=== PATIENT | male | born 1965 | race African-American/Black ===

== ENCOUNTER 2017-04-18 15:21 | Emergency (ER) | payer OTHER ==
[~2017-04-18] VITALS: Ht 175.3 cm; Wt 117.9 kg
[~2017-04-18 15:21] MED LIST: ACYCLOVIR400 MG ORAL; CODEINE 30MG TA30 MG ORAL; HYDROXYZINE PA100 MG ORAL; LEVITRA10 MG ORAL; METFORMIN HCL500 M1 ORAL; SERTRALINE HCL25 MG ORAL
[2017-04-18 15:26] VITALS: BP 136/80
--- NOTE | 2017-04-18 15:27 | Emergency Room Report ---
History of Present Illness General Chief Complaint: Abdominal Pain Source: Patient Present Illness HPI 51YOM BIBEMS from urgent care center for "10/10 left lower abd pressure" of 1 week associated with urinary incontinence, blood in urine, fever, nausea. Recently had "Swelling of tip of penis." Uncircumcised. Was given topical anti- fungal with improvement but not resolution of swelling. No difficulty in retracting foreskin for urination. History of DM. On Metformin. Glucose 84. Allergies: Coded Allergies: No Known Allergies (Unverified , 04/18/17) Patient History Past Medical History: DM Past Surgical History: none Pertinent Family History: none Social History: Denies: alcohol use, drug use, smoking Immunizations: UTD Reviewed Nursing Documentation: PMH: Agreed, PSxH: Agreed Nursing Documentation-PMH Hx Diabetes: Yes Review of Systems All Other Systems: negative except mentioned in HPI Physical Exam Vital Signs Date Time Temp Pulse Resp B/P Pulse Ox O2 Delivery O2 Flow Rate FiO2 04/18/17 15:12 101.8 88 16 136/80 99 Room Air Sp02 EP Interpretation: reviewed, abnormal General Appearance: normal inspection, well appearing, no apparent distress, alert, GCS 15, non-toxic, other - Sitting comfortably in stretcher, no writhing ; uncontrolled urinary incontinence Head: normocephalic, atraumatic Eyes: bilateral eye EOMI, bilateral eye PERRL ENT: normal ENT inspection, hearing grossly normal, normal voice Neck: normal inspection, full range of motion, supple, no bony tend Respiratory: normal inspection, lungs clear, normal breath sounds, no respiratory distress, no retraction, no wheezing Cardiovascular #1: regular rate, rhythm, no edema Gastrointestinal: normal inspection, normal bowel sounds, soft, no guarding, no hernia, other - +LLQ abd pain. No rebound, guarding Genitourinary: no CVA tenderness Musculoskeletal: normal inspection, back normal, normal range of motion, Bernarda' s Sign negative Neurologic: normal inspection, alert, oriented x3, responsive, associate quality engineer III-XII nml as tested, motor strength/tone normal, speech normal Psychiatric: normal inspection, judgement/insight normal, mood/affect normal Skin: normal inspection Medical Decision Making Diagnostic Impression: Primary Impression: Abdominal pain Qualified Codes: R10.32 - Left lower quadrant pain Additional Impressions: Fever Qualified Codes: R50.9 - Fever, unspecified Urinary incontinence Qualified Codes: R32 - Unspecified urinary incontinence UTI (urinary tract infection) Qualified Codes: N30.01 - Acute cystitis with hematuria Balanitis ER Course - VS significant for fever. Normotensive. Not tachycardic. - UA c/w UTI - CTAP negative for stones, other acute pathology - Fever resolved with tylenol. No other source - CXR no PNA. Abd otherwise non -focal. Low suspicion for meningitis - No CVAT - low suspicion for pyelo. However + leuks. UTI likely from obstruction/uncircumcised penis + balanitis/fungal infection. - Will tx as complicated UTI. Initial Abx IV given in ED - Rx Levofloxacin - Tolerating PO - asked for sandwich. Low suspicion for septic process requiring further admission or IV Abx at this time DC home Last Vital Signs Date Time Temp Pulse Resp B/P Pulse Ox O2 Delivery O2 Flow Rate FiO2 04/18/17 15:12 101.8 88 16 136/80 99 Room Air Status: improved Disposition: HOME, SELF-CARE SUSANNAH HUTCHINSON M.D. Apr 18, 2017 15:26
[2017-04-18] MEDS ORDERED: Ketorolac 30mg Inj IV ONE (15:30)
[2017-04-18 16:00] LABS: APPEARANCE,URINE CLEAR; KETONES,URINE NEGATIVE (NEGATIVE); LEUKOCYTE ESTERASE ,URINE 2+ (NEGATIVE); NITRITE,URINE NEGATIVE (NEGATIVE); PH,URINE 6 (4.5-8.0); PROTEIN,URINE NEGATIVE (NEGATIVE); UROBILINOGEN,URINE NORMAL MG/DL (0.0-1.0)
[2017-04-18 16:06] LABS: BASOPHILS % (AUTO) 0.7 % (0.0-2.0); EOSINOPHILS % (AUTO) 0.1 % (0.0-3.0); LYMPHOCYTES % (AUTO) 7.6 % (20.0-45.0); MEAN CORPUSCULAR HEMOGLOBIN 23.5 PG (27.0-31.0); MEAN CORPUSCULAR HGB CONC 31.7 G/DL (32.0-36.0); MEAN CORPUSCULAR VOLUME 74 FL (80-99); MEAN PLATELET VOLUME 6.6 FL (6.5-10.1); MONOCYTES % (AUTO) 7.3 % (1.0-10.0); NEUTROPHILS % (AUTO) 84.4 % (45.0-75.0); PLATELET COUNT 237 K/UL (150-450); RED CELL DISTRIBUTION WIDTH 13.4 % (11.6-14.8); WHITE BLOOD COUNT 13.9 K/UL (4.8-10.8)
[2017-04-18 16:17] LABS: ALANINE AMINOTRANSFERASE 21 U/L (3-41); ALBUMIN/GLOBULIN RATIO 1.2 (1.0-2.7); ANION GAP 13 (5-15); ASPARTATE AMINO TRANSFERASE 21 U/L (5-40); CALCIUM 9.4 mg/dL (8.6-10.2); CARBON DIOXIDE 28 mEQ/L (20-30); CHLORIDE 97 mEQ/L (98-107); CREATININE 1.2 mg/dL (0.7-1.2); GLOMERULAR FILTRATION RATE > 60 mL/min (>60); HEMOLYSIS 14; LIPASE 25 U/L (< 60); POTASSIUM 4.3 mEQ/L (3.4-4.9); SODIUM 138 mEQ/L (135-145); TOTAL PROTEIN 7.9 g/dL (6.6-8.7)
[2017-04-18 16:30] VITALS: BP 107/61
[2017-04-18] MEDS ORDERED: cefTRIAXone 2 GM in NS 110 ML IVPB ONE (16:30)
[2017-04-18 16:35] LABS: AMORPHOUS SEDIMENT,UR FEW /LPF; BACTERIA,URINE MODERATE /HPF
[2017-04-18] MEDS ORDERED: Fluconazole 100mg tab ORAL ONE (17:15)
[2017-04-18] MEDS ORDERED: LEVOFLOXACIN750 MG ORAL (17:17)
[2017-04-18 17:21] VITALS: BP 134/84
--- NOTE | 2017-04-19 07:39 | Diagnostic Imaging Report ---
Indications: ] Technique: Portable AP chest Findings: Comparison: None Suboptimal inspiration, lordotic projection limits evaluation. Heart size, pulmonary vasculature within normal limits. Visualized portions of lungs and pleura clear. No abnormal mediastinal widening. IMPRESSION: No evidence of acute cardiopulmonary disease, limited as described. Upright PA and lateral chest radiographs with better inspiratory effort and optimal technique recommended for more complete evaluation.
--- NOTE | 2017-04-20 10:02 | Diagnostic Imaging Report ---
Dictations: Right-sided abdominal pain Technique: Continuous helical CT imaging of the lumbar spine was performed with automatic exposure control on a Siemens sensation [address] scanner. Axial, coronal, and sagittal images were reconstructed at 3 mm slice thicknesses. No oral or IV contrast administered per requesting physician's order, the spinal contraindications listed CTDI volume(s): 19 mGy Total DLP: 73 mGy-cm Findings: Comparison: None Lack of oral and IV contrast limits evaluation. Gastrointestinal tract nondilated throughout. Appendix unremarkable. No obvious mural thickening, adjacent stranding, extraluminal gas or fluid collections. Urinary bladder partially distended, suggestion of mild mural thickening. No adjacent stranding. Unenhanced liver, gallbladder, pancreas, spleen, adrenal glands, kidneys, ureters, prostate, seminal vesicles, retroperitoneum, mesentery, remainder visualized abdominopelvic anatomy demonstrates no other obvious acute abnormality. Lung bases and adjacent pleural surfaces clear. Disc space narrowing with marginal osteophyte formation, vacuum phenomenon lower lumbar spine. Fat-containing umbilical hernia. IMPRESSION: Apparent mild mural thickening of urinary bladder--underdistention versus hypertrophy or cystitis No other evidence of acute abdominopelvic disease, with limitation as described. Subtle but potentially significant abnormalities may be missed. Repeat CT scan with full oral and IV contrast preparation recommended for more complete evaluation, as clinically indicated Fat-containing umbilical hernia Degenerative spondylosis
== END 2017-04-18 17:22 | disposition home or self-care (01) ==
LOC: EDBD 15:21 → EMR 15:40 → CANBEDREQ 16:57 → EMR 17:22
DX: R10.32 Left lower quadrant pain (principal); R50.9 Fever, unspecified; R32 Unspecified urinary incontinence; N30.01 Acute cystitis with hematuria; N48.1 Balanitis; E11.9 Type 2 diabetes mellitus without complications
CPT/HCPCS: 36415; 71010; 74176; 80053; 81003; 83690; 85025; 87086; 87181; 96360; 96361; 99284; J0696; J1885; J2405; 96374